=== PATIENT | male | born 1950 | race Caucasian/White ===

== ENCOUNTER 2020-04-09 17:24 | Inpatient (IN) | payer MEDICARE, OTHER ==
--- NOTE | 2020-04-09 18:58 | RAD ---
Portable frontal chest radiograph: 04/09/2020 COMPARISON: 08/30/2016 HISTORY: Covid positive patient with cough and hypoxia FINDINGS: There is extensive new prominent interstitial and alveolar opacity/consolidation within the mid and lower lung zones bilaterally, highly suspicious for extensive bilateral Covid pneumonia. Midline sternotomy wires are noted. There is no pneumothorax or large volume pleural effusion. Pleura l fluid cannot be excluded on the right. IMPRESSION: Prominent airspace disease in the mid and lower lung zones bilaterally, suspicious for ex tensive Covid pneumonia.
[2020-04-09] MEDS ORDERED: Dexamethasone 10 MG/ML VIAL ONE (19:01)
[2020-04-09 19:43] LABS: #Lymphocytes 0.6 thou/uL (1.20-3.40); #Monocytes 0.5 thou/uL (0.11-0.59); #Neutrophils 8.2 thou/uL (1.40-6.50); %Basophils 0.1 % (0.0-1.0); %Eosinophils 0.3 % (0.0-10.0); %Lymphocytes 6.8 % (21.0-51.0); %Monocytes 5.1 % (0.0-10.0); %Neutrophils 87.6 % (42.0-75.0); Hemoglobin 16.6 g/dL (14.0-18.0); Mean Corpuscular HGB CONC 32.9 g/dL (32.0-36.0); Mean Corpuscular Hemoglobin 29.8 pg (27.0-31.0); Mean Corpuscular Volume 90.4 fL (78.0-98.0); Mean Platelet Volume 7.4 fL (7.4-10.4); Platelet Count 212 thou/uL (130-400); RBC Distribution Width 12.3 % (11.5-14.5); Red Blood Cell (RBC) Count 5.56 mill/uL (4.70-6.10); White Blood Cell (WBC) Count 9.4 thou/uL (4.8-10.8)
[2020-04-09 19:48] LABS: ALT (SGPT) 257 U/L (8-55); AST (SGOT) 145 U/L (5-34); Albumin 3.5 g/dL (3.4-4.8); Alkaline Phosphatase 78 U/L (40-110); Anion Gap 19 mmol/L (10-20); BUN (Urea Nitrogen) 29 mg/dL (8.4-25.7); Bilirubin, Total 1.4 mg/dL (0.2-1.2); Calc. Creatinine Clearance 0 mL/min (70-130); Carbon Dioxide 22 mmol/L (23-31); Chloride 96 mmol/L (98-107); Globulin 3.2 g/dL (2.4-3.5); Glucose 246 mg/dL (80-115); Potassium 4.6 mmol/L (3.5-5.1); Protein, Total 6.7 g/dL (5.8-8.1); Sodium 132 mmol/L (136-145)
[2020-04-09] MEDS ORDERED: cloNIDine 0.1 MG TAB PO PRN (21:42)
[2020-04-09] MEDS ORDERED: Promethazine HCl 12.5 MG in Sodium Chloride 0.9% 50 ML IVPB PRN (21:42)
[2020-04-09] MEDS ORDERED: Labetalol HCl 100 MG/20 ML VIAL SLOW IVP PRN (21:42)
[2020-04-09] MEDS ORDERED: HYDROcodone/Acetaminophen 5/325 mg Tablet PO PRN (21:42)
[2020-04-09] MEDS ORDERED: hydrALAZINE 20 MG/ML VIAL SLOW IVP PRN (21:42)
[2020-04-09] MEDS ORDERED: Ondansetron PF 4 MG/2 ML Vial IVP PRN (21:42)
[2020-04-09] MEDS ORDERED: Electrolyte Replacement Protocol 1 EACH FS PRN (21:45)
[2020-04-09] MEDS ORDERED: Dextrose 5% in Water 1,000 ML IV PRN (22:03)
[2020-04-09] MEDS ORDERED: Dextrose 50% Abboject 50 ML SYRINGE SLOW IVP PRN (22:03)
--- NOTE | 2020-04-09 22:03 | PDOC.HHP ---
Hospitalist HPI - History of Present Illness Shortness of breath History of Present Illness: Patient is a 70 year old male with PMH DM, HLD, HTN, CABG, [place] who presents to ED for shortness of breath. Patient diagnosed with COVID mar 28 and was having mild symptoms until this week, when he began to have shortness of breath which was worsening, he went and bought a o2 pulse monitor for home and was in the low 80s and presented to ED. Patient has been on PO steroids and antibiotics from his doctor. In ED, patient stable and satting well on nasal cannula. In ED, labs significant for 132, glucose 246, lactic acid 3.4, LFTs elevated, CXR suspicious for extensive covid pneumonia, patinet admitted for further workup and care. Hospitalist ROS - Review of Systems Constitutional: reports: fever, chills, sweats, weakness, malaise Eyes: denies: pain, vision change, conjunctivae inflammation, eyelid inflammation, redness, other ENT: denies: ear pain, ear discharge, nose pain, nose discharge, nose congestion, mouth pain, mouth swelling, throat pain, throat swelling, other Respiratory: reports: cough, shortness of breath, pleuritic pain. denies: dry, hemoptysis, SOB with excertion, sputum, wheezing, other Cardiovascular: denies: chest pain, palpitations, orthopnea, paroxysmal noc. dyspnea, edema, light headedness, other Gastrointestinal: denies: nausea, vomiting, abdominal pain, diarrhea, constipation, melena, hematochezia, other Genitourinary: denies: dysuria, frequency, incontinence, hematuria, retention, other Musculoskeletal: denies: neck pain, shoulder pain, arm pain, back pain, hand pain, leg pain, foot pain, other Skin: denies: rash, lesions, julianne, bruising, other Neurological: denies: weakness, numbness, incoordination, change in speech, confusion, seizures, other All other systems reviewed; all pertinent +/- noted in HPI/Subj - Medication Medications: clopidogrel WedApr 09, 2020 18:34 VALERIO Lechuga [place] TABLET : Strength - 75 mg : ORAL Patient Dose: 1 tab(s) Oral once a day (at bedtime). pravastatin WedApr 09, 2020 18:34 VALERIO Lechuga [place] TABLET : Strength - 80 mg : ORAL Patient Dose: 1 tab(s) Oral once a day (at bedtime). amLODIPine WedApr 09, 2020 18:34 VALERIO Lechuga [place] TABLET : Strength - 10 mg : ORAL Patient Dose: 1 tab(s) Oral once a day (at bedtime). metFORMIN WedApr 09, 2020 18:34 VALERIO Lechuga [place] TABLET, EXTENDED RELEASE 24 HR : Strength - 500 mg : ORAL Patient Dose: 1 tab(s) Oral once a day (in the evening).WITH EVENING MEAL. meTOPROLOL tartrate oral WedApr 09, 2020 18:34 VALERIO Lechuga [place] TABLET : Strength - 50 mg : ORAL Patient Dose: 1 tab(s) Oral once a day (in the morning). pantoprazole oral WedApr 09, 2020 18:34 VALERIO Lechuga [place] TABLET, DELAYED RELEASE (ENTERIC COATED) : Strength - 40 mg : ORAL Patient Dose: 1 tab(s) Oral 2 times a day. Baby Aspirin WedApr 09, 2020 18:35 VALERIO Lechuga [place] tablet,chewable : Strength - 81 mg : ORAL Patient Dose: once a day (in the morning). Hospitalist History - Past Medical History Other Medical History: DM, HLD, HTN, CABG, [place] - Past Surgical History Other Surgical History: SINUS SURGERY, BILATERAL SHOULDER SURGERY, SKIN CANCER REMOVAL FROM NOSE. CABG x 3. - Family History Family History: reports: no pertinent history - Social History Smoking Status: Former smoker - Exam General Appearance: NAD, awake alert Eye: PERRL, anicteric sclera ENT: normocephalic atraumatic, no oropharyngeal lesions, moist mucosa Neck: supple, symmetric, no JVD, no thyromegaly, no lymphadenopathy, no carotid bruit Heart: RRR, no murmur, no gallops, no rubs, normal peripheral pulses Respiratory: CTAB, no wheezes, no rales, no ronchi, normal chest expansion, no tachypnea, normal percussion Gastrointestinal: soft, non-tender, non-distended, normal bowel sounds, no palpable masses, no hepatomegaly, no splenomegaly, no bruit Extremities: no cyanosis, no clubbing, no edema Skin: normal turgor, no lesions, no rashes Neurological: cranial nerve grossly intact, normal sensation to touch, no weakness, no focal deficits, no new deficit Musculoskeletal: normal tone, normal strength, no muscle wasting Psychiatric: normal affect, normal behavior, A&O x 3 Hospitalist Results - Labs Result Diagrams: 04/09/20 19:14 04/09/20 19:14 Lab results: WBC 9.4 thou/uL (4.8-10.8) 04/09/20 19:14 Hgb 16.6 g/dL (14.0-18.0) 04/09/20 19:14 Hct 50.3 % (42.0-52.0) 04/09/20 19:14 MCV 90.4 fL (78.0-98.0) 04/09/20 19:14 Plt Count 212 thou/uL (130-400) 04/09/20 19:14 Neutrophils % 87.6 % (42.0-75.0) H 04/09/20 19:14 Sodium 132 mmol/L (136-145) L 04/09/20 19:14 Potassium 4.6 mmol/L (3.5-5.1) 04/09/20 19:14 Chloride 96 mmol/L (98-107) L 04/09/20 19:14 Carbon Dioxide 22 mmol/L (23-31) L 04/09/20 19:14 BUN 29 mg/dL (8.4-25.7) H 04/09/20 19:14 Creatinine 0.99 mg/dL (0.7-1.3) 04/09/20 19:14 Glucose 246 mg/dL (80-115) H 04/09/20 19:14 Lactic Acid 3.4 mmol/L (0.5-2.2) H 04/09/20 19:14 Calcium 9.0 mg/dL (7.8-10.44) 04/09/20 19:14 Total Bilirubin 1.4 mg/dL (0.2-1.2) H 04/09/20 19:14 AST 145 U/L (5-34) H 04/09/20 19:14 ALT 257 U/L (8-55) H 04/09/20 19:14 Alkaline Phosphatase 78 U/L (40-110) 04/09/20 19:14 Troponin I Less than 0.010 ng/mL (< 0.028) 04/09/20 19:14 B-Natriuretic Peptide 22.8 pg/mL (0-100) 04/09/20 19:14 Serum Total Protein 6.7 g/dL (5.8-8.1) 04/09/20 19:14 Albumin 3.5 g/dL (3.4-4.8) 04/09/20 19:14 Additional comment: VITAL SIGNS WedApr 09, 2020 17:25 VALERIO Meraz, Jessica BP: 139/73 Pulse: 104 Resp: 24 Temp: 98.9 (Oral) Pain: 0 O2 sat: 83 on (Room Air) Time: 04/09/2020 17:25. - EKG Interpretation EK beats per minute, pr 140, qtc 444, no acute ST changes Hospitalist H&P A/P - Plan Plan: Patient is a 70 year old male with PMH DM, HLD, HTN, CABG, [place] who presents to ED for shortness of breath. # COVID 19 pneumonia # hypoxia # elevated lactic acid - presume due to hypoxia - admit to floor - continue abx, switch to levaquin - IV decadron - out of window for remdesivir # HTN - resume home medications, PRNs in chart # DM - SSI, continue home medications # history of CAD, CABG, [place] - continue home medications # DVT/GI ppx full code
[2020-04-09] MEDS: Guaifenesin DM 100-10/5 ML UDCUP PO PRN (22:25)
[2020-04-09] MEDS ORDERED: cefTRIAXone\\ROCEPHIN 1 GM in Sodium Chloride 0.9% 100 ML IVPB SCH (22:30)
[2020-04-09 22:38] LABS: Lactic Acid 2.3 mmol/L (0.5-2.2)
[2020-04-09 23:45] VITALS: BMI 28.4
[2020-04-10] MEDS: Albuterol 200 PUFF (6.7GM INHALER) INH PRN (05:34)
[2020-04-10] MEDS: HumaLOG 300 UNITS/3 ML VIAL SC PRN ×4 (05:34→19:44)
[2020-04-10 06:55] LABS: ALT (SGPT) 204 U/L (8-55); AST (SGOT) 79 U/L (5-34); Albumin 3.1 g/dL (3.4-4.8); Alkaline Phosphatase 67 U/L (40-110); Bilirubin, Direct 0.5 mg/dL (0.1-0.3); Protein, Total 6.1 g/dL (5.8-8.1)
[2020-04-10 06:56] LABS: #Lymphocytes 0.7 thou/uL (1.20-3.40); #Monocytes 0.2 thou/uL (0.11-0.59); #Neutrophils 7.5 thou/uL (1.40-6.50); %Basophils 0.1 % (0.0-1.0); %Eosinophils 0.1 % (0.0-10.0); %Lymphocytes 7.8 % (21.0-51.0); %Monocytes 2.8 % (0.0-10.0); %Neutrophils 89.2 % (42.0-75.0); Anion Gap 12 mmol/L (10-20); BUN (Urea Nitrogen) 25 mg/dL (8.4-25.7); Calc. Creatinine Clearance 104 mL/min (70-130); Calcium 8.7 mg/dL (7.8-10.44); Carbon Dioxide 24 mmol/L (23-31); Chloride 101 mmol/L (98-107); Glucose 272 mg/dL (80-115); Hemoglobin 12.9 g/dL (14.0-18.0); Mean Corpuscular HGB CONC 33.6 g/dL (32.0-36.0); Mean Corpuscular Hemoglobin 30.9 pg (27.0-31.0); Mean Corpuscular Volume 91.9 fL (78.0-98.0); Platelet Count 238 thou/uL (130-400); Potassium 4.3 mmol/L (3.5-5.1); RBC Distribution Width 12.1 % (11.5-14.5); Red Blood Cell (RBC) Count 4.17 mill/uL (4.70-6.10); Sodium 133 mmol/L (136-145); White Blood Cell (WBC) Count 8.4 thou/uL (4.8-10.8)
[2020-04-10] MEDS: Amiodarone 200 MG TAB PO SCH ×2 (08:11→09:55)
[2020-04-10] MEDS: Famotidine 20 MG TAB PO SCH ×2 (08:11→19:37)
[2020-04-10] MEDS: Alogliptin 25 MG TAB PO SCH ×2 (08:11→09:56)
[2020-04-10] MEDS: Furosemide 40 MG TAB PO SCH ×2 (08:12→09:56)
[2020-04-10] MEDS: Acetaminophen 325 MG TAB PO PRN (08:12)
[2020-04-10] MEDS ORDERED: Magnesium 2 GM/50 ML 2 GM in Premix Bag 1 BAG IVPB SCH (08:30)
[2020-04-10] MEDS ORDERED: Aspirin 325 MG TAB PO SCH (09:00)
--- NOTE | 2020-04-10 12:59 | CON ---
DATE OF CONSULTATION: 04/10/2020 CONSULTING PHYSICIAN: Kandi De Leon MD REASON FOR CONSULTATION: COVID-19 pneumonia. HISTORY OF PRESENT ILLNESS: This patient is a pleasant 70-year-old male, who was a retired [employer] employee from 2004. He became ill with COVID around . At that time, he got tested and was notified results about two days later. He had some fever, but mainly his symptoms been shortness of breath and fatigue. He called Dr. Frias. He was prescribed some Levaquin and I think he had been taking some steroids as an outpatient. He came in the hospital last night because of hypoxemia that he determined by home pulse ox monitoring. It is unclear how long he has been hypoxic. PAST MEDICAL HISTORY: 1. Diabetes. 2. Coronary artery disease. 3. Myocardial infarction. 4. Hypertension. 5. Hyperlipidemia. PAST SURGICAL HISTORY: He has had coronary artery bypass grafting surgery, sinus surgery, bilateral shoulder surgery, and skin cancer removal. FAMILY MEDICAL HISTORY: Unremarkable. SOCIAL HISTORY: Quit smoking around age 33 after a 15 pack-year history. He worked in [employer] here. MEDICATIONS: Prior to admission; 1. Atorvastatin 80 mg nightly. 2. Semaglutide 7 mg daily. 3. Metformin 500 mg b.i.d. 4. Metoprolol 50 mg every morning. 5. Norvasc 5 mg daily. 6. Aspirin 81 mg daily. 7. Zetia 10 mg daily. Current inpatient medications were reviewed, see chart. REVIEW OF SYSTEMS: Dry cough. No fever, chills, nausea, vomiting, hematemesis, melena, hematochezia, hematuria, or dysuria. PHYSICAL EXAMINATION: VITAL SIGNS: O2 saturation 97% 6 L at rest, pulse 82, temperature 97.8, and blood pressure 112/67. GENERAL: The patient awake and alert, in no distress. HEENT: Unremarkable. NECK: No adenopathy or JVD. LUNGS: Scattered crackles both anteriorly and posteriorly. CARDIOVASCULAR: S1 and S2. Regular. ABDOMEN: Soft and nontender. EXTREMITIES: No clubbing, cyanosis, or edema. LABORATORY DATA: Sodium 133, potassium 4.3, chloride 101, CO2 of 24, BUN 25, creatinine 0.8, glucose 272, AST 79, and ALT 204. White blood cell count 8.4, hematocrit 38.3, and platelet count 238. X-ray shows bilateral infiltrates. ASSESSMENT: 1. COVID-19 pneumonia with comorbidities that include coronary artery disease, hypertension, and diabetes mellitus. 2. Acute hypoxic respiratory failure secondary to COVID-19 pneumonia. RECOMMENDATIONS: The patient is stable on his current level of oxygen. I would not recommend BiPAP or intubation or high-flow oxygen at this time, but those could be reserved if he worsens. He is about 14 days into this, so I would not anticipate him necessarily getting worse. His anticoagulation needs to be increased, so I have changed the order in the computer. I agree with the steroids. I would try to manage his diabetes with insulin type agents rather than oral hypoglycemics at this time. I would try to get him up and about the room with physical therapy if at all possible. Job ID: [id number]
--- NOTE | 2020-04-10 14:10 | PDOC.HOSPP ---
- Subjective Encounter Date: 04/10/20 Encounter Time: 08:00 Subjective: sob is better, is comfortable on nasal canula now - Objective Vital Signs & Weight: Vital Signs (12 hours) Temp Pulse Resp BP Pulse Ox 04/10/20 11:19 97.8 F 82 18 112/67 97 04/10/20 10:30 93 L 04/10/20 08:00 92 L 04/10/20 07:19 97.8 F 82 18 135/76 92 L Weight Admit Weight 198 lb 6.656 oz Weight 198 lb 6.656 oz I&O: 04/09/20 04/10/20 04/11/20 06:59 06:59 06:59 Intake Total 350 Balance 350 Result Diagrams: 04/10/20 06:20 04/10/20 06:20 Additional Labs: Accuchecks 04/10/20 04/10/20 11:21 05:09 POC Glucose 237 H 294 H Hospitalist ROS - Medication Medications: Active Medications Generic Name Dose Route Start Last Admin Trade Name Freq PRN Reason Stop Dose Admin Acetaminophen 650 mg 04/09/20 21:42 04/10/20 08:12 Acetaminophen 325 Mg Tab PO 650 mg Q4H PRN Administration Headache/Fever/Mild Pain (1-3) Albuterol Sulfate 1 puff 04/09/20 22:07 04/10/20 05:34 Albuterol 200 Puff (6.7gm Inhaler) INH 1 puff Q4H PRN Administration SOB &/or Wheezing Famotidine 20 mg 04/10/20 09:00 04/10/20 08:11 Famotidine 20 Mg Tab PO 20 mg BID NATALIE Administration Guaifenesin/Dextromethorphan 15 ml 04/09/20 21:42 04/09/20 22:25 Guaifenesin Dm 100-10/5 Ml Udcup PO 15 ml Q4H PRN Administration Cough Insulin Human Lispro 0 units 04/09/20 22:03 04/10/20 11:34 Humalog 300 Units/3 Ml Vial SC 3 unit .MILD SLIDING SCALE PRN Administration Mild Correctional Scale Metoprolol Succinate 50 mg 04/10/20 09:00 04/10/20 08:12 Metoprolol Succinate Xl 50 Mg Tab PO 50 mg QAM NATALIE Administration Pantoprazole Sodium 40 mg 04/10/20 09:00 04/10/20 08:12 Pantoprazole 40 Mg Tab PO 40 mg BID NATALIE Administration - Exam General Appearance: awake alert Eye: PERRL, anicteric sclera ENT: no oropharyngeal lesions, moist mucosa Neck: supple, no JVD Heart: RRR, no murmur Respiratory: no wheezes, rales, rhonchi Gastrointestinal: soft, non-tender, non-distended, normal bowel sounds Extremities: no cyanosis, no edema Neurological: cranial nerve grossly intact, no focal deficits Psychiatric: normal affect, A&O x 3 Hosp A/P (1) Pneumonia due to COVID-19 virus Code(s): U07.1 - COVID-19; J12.82 - PNEUMONIA DUE TO CORONAVIRUS DISEASE 2019 Status: Acute (2) Acute respiratory failure with hypoxia Code(s): J96.01 - ACUTE RESPIRATORY FAILURE WITH HYPOXIA Status: Acute (3) CAD (coronary artery disease) Code(s): I25.10 - ATHSCL HEART DISEASE OF [place] CORONARY ARTERY W/O ANG PCTRS Status: Chronic Qualifiers: Coronary Disease-Associated Artery/Lesion type: bypass graft [place] vs. transplanted heart: [place] heart Associated angina: without angina Qualified Code(s): I25.810 - Atherosclerosis of coronary artery bypass graft(s) without angina pectoris (4) HTN (hypertension) Code(s): I10 - ESSENTIAL (PRIMARY) HYPERTENSION Status: Chronic Qualifiers: Hypertension type: essential hypertension Qualified Code(s): I10 - Es sential (primary) hypertension (5) DM type 2 (diabetes mellitus, type 2) Status: Chronic Qualifiers: Diabetes mellitus nursing home insulin use: without nursing home use (6) Dyslipidemia Code(s): E78.5 - HYPERLIPIDEMIA, UNSPECIFIED Status: Chronic (7) Elevated LFTs Code(s): R79.89 - OTHER SPECIFIED ABNORMAL FINDINGS OF BLOOD CHEMISTRY Status: Acute - Plan is on nasal canula O2, taper as tolerated currently around 5 lts on eliquis dvt prophylaxis, asp, dexamethasone, alb inh, levaquin (may dc if ok with ), protonix, toprol xl, norvasc pt is not on amiodarone and had afib post cabg years ago and none after that, he does not take anticoagulants at home staff to obtain accurate meds from his pharmacy he tested covid 19 + at [facility] on 03/28/2020. d/w and gave full updates to ambulate as tolerated appreciate 's help
[2020-04-10] MEDS: Levofloxacin 750 mg/D5W 500 MG in Premix Bag 1 BAG IVPB SCH (19:31)
[2020-04-10] MEDS: Amlodipine 5 MG TAB PO SCH (19:37)
[2020-04-10] MEDS: Dexamethasone 4 mg/ml Vial SLOW IVP SCH (19:37)
[2020-04-10] MEDS: Atorvastatin Calcium 20 MG TAB PO SCH (19:37)
[2020-04-10] MEDS: Apixaban 2.5 MG TAB PO SCH (19:38)
[2020-04-10] MEDS: Guaifenesin DM 100-10/5 ML UDCUP PO PRN (19:38)
[2020-04-10] MEDS ORDERED: Azithromycin 500 MG in Sodium Chloride 0.9% 250 ML 250 ML IVPB SCH (21:00)
[2020-04-10] MEDS ORDERED: Insulin Glargine 10 UNITS in Pre-Filled Syringe 1 EACH SC SCH (21:00)
[2020-04-10] MEDS ORDERED: Azithromycin 500 MG in Syringe 0 ML IVPB SCH (21:00)
[2020-04-10] MEDS ORDERED: Enoxaparin Sodium 40 MG/0.4 ML SYRINGE SC SCH (21:00)
[2020-04-10] MEDS ORDERED: Apixaban 5 MG TAB PO SCH (21:00)
[2020-04-11] MEDS: HumaLOG 300 UNITS/3 ML VIAL SC PRN ×2 (04:57→11:35)
[2020-04-11] MEDS: Guaifenesin DM 100-10/5 ML UDCUP PO PRN ×3 (04:58→21:35)
[2020-04-11 06:44] LABS: #Lymphocytes 0.6 thou/uL (1.20-3.40); #Monocytes 0.2 thou/uL (0.11-0.59); #Neutrophils 8.8 thou/uL (1.40-6.50); %Eosinophils 0.4 % (0.0-10.0); %Lymphocytes 5.9 % (21.0-51.0); %Neutrophils 91.7 % (42.0-75.0); Hemoglobin 13.2 g/dL (14.0-18.0); Mean Corpuscular HGB CONC 34.1 g/dL (32.0-36.0); Mean Corpuscular Hemoglobin 30.7 pg (27.0-31.0); Mean Corpuscular Volume 90.1 fL (78.0-98.0); Mean Platelet Volume 7.2 fL (7.4-10.4); Platelet Count 278 thou/uL (130-400); Red Blood Cell (RBC) Count 4.31 mill/uL (4.70-6.10); White Blood Cell (WBC) Count 9.6 thou/uL (4.8-10.8)
[2020-04-11 06:59] LABS: ALT (SGPT) 218 U/L (8-55); AST (SGOT) 102 U/L (5-34); Alkaline Phosphatase 70 U/L (40-110); Bilirubin, Direct 0.5 mg/dL (0.1-0.3); Bilirubin, Total 1.1 mg/dL (0.2-1.2); Protein, Total 5.9 g/dL (5.8-8.1)
[2020-04-11 07:02] LABS: Anion Gap 15 mmol/L (10-20); BUN (Urea Nitrogen) 22 mg/dL (8.4-25.7); Calc. Creatinine Clearance 104 mL/min (70-130); Calcium 8.1 mg/dL (7.8-10.44); Carbon Dioxide 21 mmol/L (23-31); Chloride 100 mmol/L (98-107); Glucose 267 mg/dL (80-115); Magnesium 2.1 mg/dL (1.6-2.6); Sodium 132 mmol/L (136-145)
[2020-04-11] MEDS: Aspirin 81 mg Enteric Coated Tablet PO SCH (08:34)
[2020-04-11] MEDS: Apixaban 2.5 MG TAB PO SCH ×2 (08:34→20:35)
[2020-04-11] MEDS: Famotidine 20 MG TAB PO SCH (08:34)
[2020-04-11] MEDS: Ezetimibe 10 MG TAB PO SCH (08:35)
[2020-04-11] MEDS: Insulin Glargine 15 UNITS in Pre-Filled Syringe 1 EACH SC SCH ×2 (08:36→21:36)
[2020-04-11] MEDS: Albuterol 200 PUFF (6.7GM INHALER) INH PRN ×2 (08:58→20:37)
--- NOTE | 2020-04-11 09:30 | PRG ---
DATE OF SERVICE: 04/11/2020 SUBJECTIVE: He is actually doing better, has no acute complaints. OBJECTIVE: VITAL SIGNS: Temperature 98.3, pulse 72, respirations 18, O2 saturation 100% on 6 L, blood pressure . HEENT: Unremarkable. NECK: No JVD. CHEST: Fairly clear. CARDIAC: S1 and S2. Regular. ABDOMEN: Soft. EXTREMITIES: No edema. LABORATORY DATA: White blood cell count 9.6, hematocrit 38.8, and platelet count 278. Sodium 132, potassium 4.0, BUN 22, creatinine 0.8, glucose 267. ASSESSMENT: Coronavirus disease 2019 pneumonia. RECOMMENDATION: Continue with anticoagulation, steroids and wean oxygen as tolerated. I do not expect that he is going to do anything, but get better at this point. Please recall if the patient gets worse. Job ID: [id number]
--- NOTE | 2020-04-11 14:43 | PDOC.HOSPP ---
- Subjective Encounter Date: 04/11/20 Encounter Time: 08:00 Subjective: no new complaints, has dry coughing spells is comfortable on humidified nasal canula O2 is mobilizing in room - Objective Vital Signs & Weight: Vital Signs (12 hours) Temp Pulse Resp BP Pulse Ox 04/11/20 11:00 98 F 82 17 127/77 98 04/11/20 09:00 112/68 93 L 04/11/20 08:00 93 L 04/11/20 07:00 98.3 F 72 18 115/73 100 04/11/20 04:55 97.6 F 86 18 134/86 90 L Weight Admit Weight 198 lb 6.656 oz Weight 198 lb 6.656 oz I&O: 04/10/20 04/11/20 04/12/20 06:59 06:59 06:59 Intake Total 350 560 Output Total 800 Balance 350 -240 Result Diagrams: 04/11/20 05:54 04/11/20 05:54 Additional Labs: Accuchecks 04/11/20 04/11/20 04/10/20 11:11 04:22 19:24 POC Glucose 222 H 270 H 211 H 04/10/20 15:49 POC Glucose 268 H Hospitalist ROS - Medication Medications: Active Medications Generic Name Dose Route Start Last Admin Trade Name Freq PRN Reason Stop Dose Admin Acetaminophen 650 mg 04/09/20 21:42 04/10/20 08:12 Acetaminophen 325 Mg Tab PO 650 mg Q4H PRN Administration Headache/Fever/Mild Pain (1-3) Albuterol Sulfate 1 puff 04/09/20 22:07 04/11/20 08:58 Albuterol 200 Puff (6.7gm Inhaler) INH 1 puff Q4H PRN Administration SOB &/or Wheezing Amlodipine Besylate 5 mg 04/10/20 21:00 04/10/20 19:37 Amlodipine 5 Mg Tab PO 5 mg HS NATALIE Administration Apixaban 2.5 mg 04/10/20 21:00 04/11/20 08:34 Apixaban 2.5 Mg Tab PO 2.5 mg BID NATALIE Administration Aspirin 81 mg 04/11/20 09:00 04/11/20 08:34 Aspirin 81 Mg Enteric Coated Tablet PO 81 mg DAILY NATALIE Administration Atorvastatin Calcium 20 mg 04/10/20 21:00 04/10/20 19:37 Atorvastatin Calcium 20 Mg Tab PO 20 mg HS NATALIE Administration Dexamethasone 6 mg 04/10/20 21:00 04/10/20 19:37 Dexamethasone 4 Mg/Ml Vial SLOW IVP 6 mg Q24H NATALIE Administration Ezetimibe 10 mg 04/11/20 09:00 04/11/20 08:35 Ezetimibe 10 Mg Tab PO 10 mg DAILY NATALIE Administration Famotidine 20 mg 04/10/20 09:00 04/11/20 08:34 Famotidine 20 Mg Tab PO 20 mg BID NATALIE Administration Guaifenesin/Dextromethorphan 15 ml 04/09/20 21:42 04/11/20 14:28 Guaifenesin Dm 100-10/5 Ml Udcup PO 15 ml Q4H PRN Administration Cough Levofloxacin 500 mg/ Device 100 mls @ 100 mls/hr 04/10/20 20:00 04/10/20 19:31 IVPB 100 mls 2000 NATALIE Administration Insulin Glargine 15 units/ 0.15 mls @ 0 mls/hr 04/11/20 09:00 04/11/20 08:36 Miscellaneous Medication SC 0.15 mls BID NATALIE Administration Insulin Human Lispro 0 units 04/09/20 22:03 04/11/20 11:35 Humalog 300 Units/3 Ml Vial SC 3 unit .MILD SLIDING SCALE PRN Administration Mild Correctional Scale Metoprolol Succinate 50 mg 04/10/20 09:00 04/11/20 11:35 Metoprolol Succinate Xl 50 Mg Tab PO 50 mg QAM NATALIE Administration Pantoprazole Sodium 40 mg 04/10/20 09:00 04/11/20 08:35 Pantoprazole 40 Mg Tab PO 40 mg BID NATALIE Administration - Exam General Appearance: awake alert Eye: PERRL, anicteric sclera ENT: no oropharyngeal lesions, moist mucosa Neck: supple, no JVD Heart: RRR, no murmur Respiratory: no wheezes, rales, rhonchi Gastrointestinal: soft, non-tender, non-distended, normal bowel sounds Extremities: no cyanosis, no edema Neurological: cranial nerve grossly intact, no focal deficits Psychiatric: normal affect, A&O x 3 Hosp A/P (1) Pneumonia due to COVID-19 virus Code(s): U07.1 - COVID-19; J12.82 - PNEUMONIA DUE TO CORONAVIRUS DISEASE 2018 Status: Acute (2) Acute respiratory failure with hypoxia Code(s): J96.01 - ACUTE RESPIRATORY FAILURE WITH HYPOXIA Status: Acute (3) CAD (coronary artery disease) Code(s): I25.10 - ATHSCL HEART DISEASE OF [place] CORONARY ARTERY W/O ANG PCTRS Status: Chronic Qualifiers: Coronary Disease-Associated Artery/Lesion type: bypass graft [place] vs. transplanted heart: [place] heart Associated angina: without angina Qualified Code(s): I25.810 - Atherosclerosis of coronary artery bypass graft(s) without angina pectoris (4) HTN (hypertension) Code(s): I10 - ESSENTIAL (PRIMARY) HYPERTENSION Status: Chronic Qualifiers: Hypertension type: essential hypertension Qualified Code(s): I10 - Essential (primary) hypertension (5) DM type 2 (diabetes mellitus, type 2) Status: Chronic Qualifiers: Diabetes mellitus correction insulin use: without rat exterminator use (6) Dyslipidemia Code(s): E78.5 - HYPERLIPIDEMIA, UNSPECIFIED Status: Chronic (7) Elevated LFTs Code(s): R79.89 - OTHER SPECIFIED ABNORMAL FINDINGS OF BLOOD CHEMISTRY Status: Acute - Plan is on nasal canula O2, taper as tolerated currently around 6 lts on eliquis dvt prophylaxis, asp, dexamethasone, alb inh, levaquin (may dc if ok with ), protonix, toprol xl, norvasc pt is not on amiodarone and had afib post cabg years ago and none after that, he does not take anticoagulants at home he tested covid 19 + at [facility] on 03/28/2020. d/w and gave full updates 04/10, 04/11. to ambulate as tolerated appreciate 's help
[2020-04-11] MEDS: Levofloxacin 750 mg/D5W 500 MG in Premix Bag 1 BAG IVPB SCH (20:34)
[2020-04-11] MEDS: Amlodipine 5 MG TAB PO SCH (20:35)
[2020-04-11] MEDS: Atorvastatin Calcium 20 MG TAB PO SCH (20:35)
[2020-04-11] MEDS: Acetaminophen 325 MG TAB PO PRN (20:36)
[2020-04-11] MEDS: Dexamethasone 4 mg/ml Vial SLOW IVP SCH (20:50)
[2020-04-12] MEDS: HumaLOG 300 UNITS/3 ML VIAL SC PRN (05:34)
[2020-04-12 06:12] LABS: #Eosinphils 0.2 thou/uL (0.0-0.7); #Lymphocytes 0.7 thou/uL (1.20-3.40); #Monocytes 0.2 thou/uL (0.11-0.59); #Neutrophils 7.1 thou/uL (1.40-6.50); %Basophils 0.2 % (0.0-1.0); %Lymphocytes 8.6 % (21.0-51.0); %Neutrophils 87.2 % (42.0-75.0); Hemoglobin 13.6 g/dL (14.0-18.0); Mean Corpuscular HGB CONC 33.7 g/dL (32.0-36.0); Mean Corpuscular Hemoglobin 30.4 pg (27.0-31.0); Mean Corpuscular Volume 90.1 fL (78.0-98.0); Platelet Count 268 thou/uL (130-400); RBC Distribution Width 12.2 % (11.5-14.5); Red Blood Cell (RBC) Count 4.47 mill/uL (4.70-6.10); White Blood Cell (WBC) Count 8.1 thou/uL (4.8-10.8)
[2020-04-12 06:40] LABS: Anion Gap 14 mmol/L (10-20); BUN (Urea Nitrogen) 22 mg/dL (8.4-25.7); Calc. Creatinine Clearance 102 mL/min (70-130); Calcium 8.2 mg/dL (7.8-10.44); Carbon Dioxide 22 mmol/L (23-31); Chloride 101 mmol/L (98-107); Glucose 224 mg/dL (80-115); Magnesium 2.2 mg/dL (1.6-2.6); Potassium 4.4 mmol/L (3.5-5.1); Sodium 133 mmol/L (136-145)
[2020-04-12] MEDS: Apixaban 2.5 MG TAB PO SCH ×2 (08:23→20:48)
[2020-04-12] MEDS: Insulin Glargine 15 UNITS in Pre-Filled Syringe 1 EACH SC SCH ×2 (08:24→20:51)
[2020-04-12] MEDS: Aspirin 81 mg Enteric Coated Tablet PO SCH (08:24)
[2020-04-12] MEDS: Ezetimibe 10 MG TAB PO SCH (08:24)
--- NOTE | 2020-04-12 14:37 | PDOC.HOSPP ---
- Subjective Encounter Date: 04/12/20 Encounter Time: 08:00 Subjective: feels better, is on nasal canula is ambulating in room, has exertional sob - Objective Vital Signs & Weight: Vital Signs (12 hours) Temp Pulse Resp BP Pulse Ox 04/12/20 08:00 98.4 F 79 20 116/74 96 Weight Admit Weight 198 lb 6.656 oz Weight 198 lb 6.656 oz I&O: 04/11/20 04/12/20 04/13/20 06:59 06:59 06:59 Intake Total 560 Output Total 800 Balance -240 Result Diagrams: 04/12/20 05:49 04/12/20 05:49 Additional Labs: Accuchecks 04/12/20 04/12/20 04/11/20 11:52 04:36 19:24 POC Glucose 175 H 235 H 182 H 04/11/20 16:24 POC Glucose 118 H Hospitalist ROS - Medication Medications: Active Medications Generic Name Dose Route Start Last Admin Trade Name Freq PRN Reason Stop Dose Admin Acetaminophen 650 mg 04/09/20 21:42 04/11/20 20:36 Acetaminophen 325 Mg Tab PO 650 mg Q4H PRN Administration Headache/Fever/Mild Pain (1-3) Albuterol Sulfate 1 puff 04/09/20 22:07 04/11/20 20:37 Albuterol 200 Puff (6.7gm Inhaler) INH 1 puff Q4H PRN Administration SOB &/or Wheezing Amlodipine Besylate 5 mg 04/10/20 21:00 04/11/20 20:35 Amlodipine 5 Mg Tab PO 5 mg HS NATALIE Administration Apixaban 2.5 mg 04/10/20 21:00 04/12/20 08:23 Apixaban 2.5 Mg Tab PO 2.5 mg BID NATALIE Administration Aspirin 81 mg 04/11/20 09:00 04/12/20 08:24 Aspirin 81 Mg Enteric Coated Tablet PO 81 mg DAILY NATALIE Administration Atorvastatin Calcium 20 mg 04/10/20 21:00 04/11/20 20:35 Atorvastatin Calcium 20 Mg Tab PO 20 mg HS NATALIE Administration Dexamethasone 6 mg 04/10/20 21:00 04/11/20 20:50 Dexamethasone 4 Mg/Ml Vial SLOW IVP 6 mg Q24H NATALIE Administration Ezetimibe 10 mg 04/11/20 09:00 04/12/20 08:24 Ezetimibe 10 Mg Tab PO 10 mg DAILY NATALIE Administration Guaifenesin/Dextromethorphan 15 ml 04/09/20 21:42 04/11/20 21:35 Guaifenesin Dm 100-10/5 Ml Udcup PO 15 ml Q4H PRN Administration Cough Insulin Glargine 15 units/ 0.15 mls @ 0 mls/hr 04/11/20 09:00 04/12/20 08:24 Miscellaneous Medication SC 0.15 mls BID NATALIE Administration Insulin Human Lispro 0 units 04/09/20 22:03 04/12/20 05:34 Humalog 300 Units/3 Ml Vial SC 3 unit .MILD SLIDING SCALE PRN Administration Mild Correctional Scale Metoprolol Succinate 50 mg 04/10/20 09:00 04/11/20 11:35 Metoprolol Succinate Xl 50 Mg Tab PO 50 mg QAM NATALIE Administration Pantoprazole Sodium 40 mg 04/10/20 09:00 04/12/20 08:24 Pantoprazole 40 Mg Tab PO 40 mg BID NATALIE Administration - Exam General Appearance: awake alert Eye: PERRL, anicteric sclera ENT: no oropharyngeal lesions, moist mucosa Neck: supple, no JVD Heart: RRR, no murmur Respiratory: no wheezes, rales, rhonchi Gastrointestinal: soft, non-tender, non-distended, normal bowel sounds Extremities: no cyanosis, no edema Neurological: cranial nerve grossly intact, no focal deficits Psychiatric: normal affect, A&O x 3 Hosp A/P (1) Pneumonia due to COVID-19 virus Code(s): U07.1 - COVID-19; J12.82 - PNEUMONIA DUE TO CORONAVIRUS DISEASE 2019 Status: Acute (2) Acute respiratory failure with hypoxia Code(s): J96.01 - ACUTE RESPIRATORY FAILURE WITH HYPOXIA Status: Acute (3) CAD (coronary artery disease) Code(s): I25.10 - ATHSCL HEART DISEASE OF [place] CORONARY ARTERY W/O ANG PCTRS Status: Chronic Qualifiers: Coronary Disease-Associated Artery/Lesion type: bypass graft [place] vs. transplanted heart: [place] heart Associated angina: without angina Qualified Code(s): I25.810 - Atherosclerosis of coronary artery bypass graft(s) without angina pectoris (4) HTN (hypertension) Code(s): I10 - ESSENTIAL (PRIMARY) HYPERTENSION Status: Chronic Qualifiers: Hypertension type: essential hypertension Qualified Code(s): I10 - [place] l (primary) hypertension (5) DM type 2 (diabetes mellitus, type 2) Status: Chronic Qualifiers: Diabetes mellitus manager terminal insulin use: without senior care use (6) Dyslipidemia Code(s): E78.5 - HYPERLIPIDEMIA, UNSPECIFIED Status: Chronic (7) Elevated LFTs Code(s): R79.89 - OTHER SPECIFIED ABNORMAL FINDINGS OF BLOOD CHEMISTRY Status: Acute - Plan is on nasal canula O2, taper as tolerated currently around 4 lts on eliquis dvt prophylaxis, asp, dexamethasone, alb inh, levaquin (may dc if ok with ), protonix, toprol xl, norvasc pt is not on amiodarone and had afib post cabg years ago and none after that, he does not take anticoagulants at home he tested covid 19 + at [facility] on 03/28/2020. d/w and gave full updates 04/10, 04/11, 04/12. to ambulate as tolerated dc plan when he is on 2-3 lts by [place], likely this weekend?
[2020-04-12] MEDS: Atorvastatin Calcium 20 MG TAB PO SCH (20:48)
[2020-04-12] MEDS: Amlodipine 5 MG TAB PO SCH (20:48)
[2020-04-12] MEDS: Dexamethasone 4 mg/ml Vial SLOW IVP SCH (20:49)
[2020-04-12] MEDS: Albuterol 200 PUFF (6.7GM INHALER) INH PRN (20:50)
[2020-04-12] MEDS: Acetaminophen 325 MG TAB PO PRN (20:50)
[2020-04-13] MEDS: HumaLOG 300 UNITS/3 ML VIAL SC PRN ×3 (05:50→17:46)
[2020-04-13] MEDS: Aspirin 81 mg Enteric Coated Tablet PO SCH (08:35)
[2020-04-13] MEDS: Apixaban 2.5 MG TAB PO SCH ×2 (08:35→19:55)
[2020-04-13] MEDS: Insulin Glargine 15 UNITS in Pre-Filled Syringe 1 EACH SC SCH ×2 (08:35→19:56)
[2020-04-13] MEDS: Ezetimibe 10 MG TAB PO SCH (08:35)
--- NOTE | 2020-04-13 11:15 | EKG ---
Test Reason : SOB Blood Pressure : / mmHG Vent. Rate : 098 BPM Atrial Rate : 098 BPM P-R Int : 140 ms QRS Dur : 092 ms QT Int : 348 ms P-R-T Axes : 041 -62 069 degrees QTc Int : 444 ms Normal sinus rhythm Possible Left atrial enlargement Left axis deviation Incomplete right bundle branch block Abnormal ECG Confirmed by MANOJ KOCH ([id number]), photo editor KENYATTA LEE ([id number]) on 04/13/2020 11:15:25 AM Referred By: Confirmed By:MANOJ KOCH
--- NOTE | 2020-04-13 14:24 | PDOC.HOSPP ---
- Subjective Encounter Date: 04/13/20 Encounter Time: 14:23 Subjective: Mr. Carmen was seen today in follow-up of COVID pneumonia. He notes feeling a bit more winded, but he attributes this to the weaning of his oxygen. He has an occasional cough, denies chest pain, ad denies any diarrhea, - Objective Vital Signs & Weight: Vital Signs (12 hours) Temp Pulse Resp BP Pulse Ox 04/13/20 12:18 97.7 F 93 20 120/72 97 04/13/20 07:32 96 04/13/20 07:30 97.7 F 79 20 105/66 96 Weight Admit Weight 198 lb 6.656 oz Weight 198 lb 6.656 oz I&O: 04/12/20 04/13/20 04/14/20 06:59 06:59 06:59 Intake Total 400 Output Total 850 Balance -450 Result Diagrams: 04/12/20 05:49 04/12/20 05:49 Additional Labs: Accuchecks 04/13/20 04/13/20 04/12/20 11:40 05:45 19:42 POC Glucose 171 H 206 H 153 H 04/12/20 15:53 POC Glucose 184 H Hospitalist ROS - Medication Medications: Active Medications Generic Name Dose Route Start Last Admin Trade Name Freq PRN Reason Stop Dose Admin Acetaminophen 650 mg 04/09/20 21:42 04/12/20 20:50 Acetaminophen 325 Mg Tab PO 650 mg Q4H PRN Administration Headache/Fever/Mild Pain (1-3) Albuterol Sulfate 1 puff 04/09/20 22:07 04/12/20 20:50 Albuterol 200 Puff (6.7gm Inhaler) INH 1 puff Q4H PRN Administration SOB &/or Wheezing Amlodipine Besylate 5 mg 04/10/20 21:00 04/12/20 20:48 Amlodipine 5 Mg Tab PO 5 mg HS NATALIE Administration Apixaban 2.5 mg 04/10/20 21:00 04/13/20 08:35 Apixaban 2.5 Mg Tab PO 2.5 mg BID NATALIE Administration Aspirin 81 mg 04/11/20 09:00 04/13/20 08:35 Aspirin 81 Mg Enteric Coated Tablet PO 81 mg DAILY NATALIE Administration Atorvastatin Calcium 20 mg 04/10/20 21:00 04/12/20 20:48 Atorvastatin Calcium 20 Mg Tab PO 20 mg HS NATALIE Administration Dexamethasone 6 mg 04/10/20 21:00 04/12/20 20:49 Dexamethasone 4 Mg/Ml Vial SLOW IVP 6 mg Q24H NATALIE Administration Ezetimibe 10 mg 04/11/20 09:00 04/13/20 08:35 Ezetimibe 10 Mg Tab PO 10 mg DAILY NATALIE Administration Guaifenesin/Dextromethorphan 15 ml 04/09/20 21:42 04/11/20 21:35 Guaifenesin Dm 100-10/5 Ml Udcup PO 15 ml Q4H PRN Administration Cough Insulin Glargine 15 units/ 0.15 mls @ 0 mls/hr 04/11/20 09:00 04/13/20 08:35 Miscellaneous Medication SC 0.15 mls BID NATALIE Administration Insulin Human Lispro 0 units 04/09/20 22:03 04/13/20 12:51 Humalog 300 Units/3 Ml Vial SC 2 unit .MILD SLIDING SCALE PRN Administration Mild Correctional Scale Levofloxacin 500 mg 04/12/20 20:00 04/12/20 20:48 Levofloxacin 500 Mg Tab PO 500 mg 2000 NATALIE Administration Metoprolol Succinate 50 mg 04/10/20 09:00 04/13/20 08:35 Metoprolol Succinate Xl 50 Mg Tab PO 50 mg QAM NATALIE Administration Pantoprazole Sodium 40 mg 04/10/20 09:00 04/13/20 08:35 Pantoprazole 40 Mg Tab PO 40 mg BID NATALIE Administration - Exam General Appearance: NAD Eye: PERRL, anicteric sclera Heart: RRR, no murmur, no gallops, no rubs, normal peripheral pulses Respiratory: rales (at both bases, right > left no wheezing or rhonchi) Gastrointestinal: soft, non-tender, non-distended, normal bowel sounds, no palpable masses, no hepatomegaly Extremities: no cyanosis, no edema (+ palpable d.p. pulses bilaterally, no lesions) Hosp A/P (1) Acute respiratory failure with hypoxia Code(s): J96.01 - ACUTE RESPIRATORY FAILURE WITH HYPOXIA Status: Acute (2) Pneumonia due to COVID-19 virus Code(s): U07.1 - COVID-19; J12.82 - PNEUMONIA DUE TO CORONAVIRUS DISEASE 2019 Status: Acute (3) CAD (coronary artery disease) Code(s): I25.10 - ATHSCL HEART DISEASE OF [place] CORONARY ARTERY W/O ANG PCTRS Status: Chronic Qualifiers: Coronary Disease-Associated Artery/Lesion type: bypass graft [place] vs. transplanted heart: [place] heart Associated angina: without angina Qualified Code(s): I25.810 - Atherosclerosis of coronary artery bypass graft(s) without angina pectoris (4) DM type 2 (diabetes mellitus, type 2) Status: Chronic Qualifiers: Diabetes mellitus termite treater helper insulin use: without prison use (5) HTN (hypertension) Code(s): I10 - ESSENTIAL (PRIMARY) HYPERTENSION Status: Chronic Qualifiers: Hypertension type: essential hypertension Qualified Code(s): I10 - Essential (primary) hypertension - Plan * Acute respiratory failure due to COVID pneumonia- continue supportive care, IV Decdron, ad incentive spirometry * DVT prophylaxis is in the form of Eliquis- may consider changing to Lovenox in the AM- will check his D- Dimer * HTN- blood pressure is stable * DM- blood glucose is stable
[2020-04-13] MEDS: Atorvastatin Calcium 20 MG TAB PO SCH (19:55)
[2020-04-13] MEDS: Amlodipine 5 MG TAB PO SCH (19:55)
[2020-04-13] MEDS: Dexamethasone 4 mg/ml Vial SLOW IVP SCH (19:55)
[2020-04-14] MEDS: HumaLOG 300 UNITS/3 ML VIAL SC PRN ×2 (05:27→12:07)
[2020-04-14 07:06] LABS: Anion Gap 15 mmol/L (10-20); BUN (Urea Nitrogen) 26 mg/dL (8.4-25.7); CRP (Inflammatory) 8.74 mg/dL (= or < 0.5); Calc. Creatinine Clearance 105 mL/min (70-130); Carbon Dioxide 19 mmol/L (23-31); Chloride 102 mmol/L (98-107); Glucose 198 mg/dL (80-115); Potassium 4.9 mmol/L (3.5-5.1); Sodium 131 mmol/L (136-145)
[2020-04-14] MEDS: Aspirin 81 mg Enteric Coated Tablet PO SCH (09:00)
[2020-04-14] MEDS: Apixaban 2.5 MG TAB PO SCH (09:00)
[2020-04-14] MEDS: Ezetimibe 10 MG TAB PO SCH (09:00)
[2020-04-14] MEDS: Insulin Glargine 15 UNITS in Pre-Filled Syringe 1 EACH SC SCH ×2 (09:01→19:58)
--- NOTE | 2020-04-14 17:47 | PDOC.HOSPP ---
- Subjective Encounter Date: 04/14/20 Encounter Time: 17:46 Subjective: Mr. Carmen was seen today in follow-up of COVD pneumonia. He says he is beginning to feel much better. He says he is breathing better, and he has been able to tolerate a lower oxygen frate. He is now down to 3 liters. - Objective Vital Signs & Weight: Vital Signs (12 hours) Temp Pulse Resp BP Pulse Ox 04/14/20 14:20 93 L 04/14/20 12:00 95 04/14/20 09:07 99 04/14/20 08:12 97.5 F L 83 20 136/84 99 Weight Admit Weight 198 lb 6.656 oz Weight 198 lb 6.656 oz I&O: 04/13/20 04/14/20 04/15/20 06:59 06:59 06:59 Intake Total 400 800 800 Output Total 850 600 Balance -450 200 800 Result Diagrams: 04/12/20 05:49 04/14/20 05:47 Additional Labs: Accuchecks 04/14/20 04/14/20 04/14/20 16:41 11:14 05:20 POC Glucose 145 H 183 H 201 H 04/13/20 20:02 POC Glucose 226 H Hospitalist ROS - Medication Medications: Active Medications Generic Name Dose Route Start Last Admin Trade Name Freq PRN Reason Stop Dose Admin Acetaminophen 650 mg 04/09/20 21:42 04/12/20 20:50 Acetaminophen 325 Mg Tab PO 650 mg Q4H PRN Administration Headache/Fever/Mild Pain (1-3) Albuterol Sulfate 1 puff 04/09/20 22:07 04/12/20 20:50 Albuterol 200 Puff (6.7gm Inhaler) INH 1 puff Q4H PRN Administration SOB &/or Wheezing Amlodipine Besylate 5 mg 04/10/20 21:00 04/13/20 19:55 Amlodipine 5 Mg Tab PO 5 mg HS NATALIE Administration Aspirin 81 mg 04/11/20 09:00 04/14/20 09:00 Aspirin 81 Mg Enteric Coated Tablet PO 81 mg DAILY NATALIE Administration Atorvastatin Calcium 20 mg 04/10/20 21:00 04/13/20 19:55 Atorvastatin Calcium 20 Mg Tab PO 20 mg HS NATALIE Administration Dexamethasone 6 mg 04/10/20 21:00 04/13/20 19:55 Dexamethasone 4 Mg/Ml Vial SLOW IVP 6 mg Q24H NATALIE Administration Ezetimibe 10 mg 04/11/20 09:00 04/14/20 09:00 Ezetimibe 10 Mg Tab PO 10 mg DAILY NATALIE Administration Guaifenesin/Dextromethorphan 15 ml 04/09/20 21:42 04/11/20 21:35 Guaifenesin Dm 100-10/5 Ml Udcup PO 15 ml Q4H PRN Administration Cough Insulin Glargine 15 units/ 0.15 mls @ 0 mls/hr 04/11/20 09:00 04/14/20 09:01 Miscellaneous Medication SC 0.15 mls BID NATALIE Administration Insulin Human Lispro 0 units 04/09/20 22:03 04/14/20 12:07 Humalog 300 Units/3 Ml Vial SC 2 unit .MILD SLIDING SCALE PRN Administration Mild Correctional Scale Levofloxacin 500 mg 04/12/20 20:00 04/13/20 19:55 Levofloxacin 500 Mg Tab PO 500 mg 2000 NATALIE Administration Metoprolol Succinate 50 mg 04/10/20 09:00 04/14/20 09:00 Metoprolol Succinate Xl 50 Mg Tab PO 50 mg QAM NATALIE Administration Pantoprazole Sodium 40 mg 04/10/20 09:00 04/14/20 09:00 Pantoprazole 40 Mg Tab PO 40 mg BID NATALIE Administration - Exam Eye: PERRL, anicteric sclera Neck: no JVD Heart: RRR, no murmur, no gallops, no rubs, normal peripheral pulses Respiratory: no wheezes, no ronchi, rales (at both bases) Gastrointestinal: soft, non-tender, non-distended, normal bowel sounds, no palpable masses, no hepatomegaly, no splenomegaly Extremities: no cyanosis (palpable d.p. pulses, no lesions), no edema Hosp A/P (1) Acute respiratory failure with hypoxia Code(s): J96.01 - ACUTE RESPIRATORY FAILURE WITH HYPOXIA Status: Acute (2) Pneumonia due to COVID-19 virus Code(s): U07.1 - COVID-19; J12.82 - PNEUMONIA DUE TO CORONAVIRUS DISEASE 2019 Status: Acute (3) CAD (coronary artery disease) Code(s): I25.10 - ATHSCL HEART DISEASE OF [place] CORONARY ARTERY W/O ANG PCTRS Status: Chronic Qualifiers: Coronary Disease-Associated Artery/Lesion type: bypass graft [place] vs. transplanted heart: [place] heart Associated angina: without angina Qualified Code(s): I25.810 - Atherosclerosis of coronary artery bypass graft(s) without angina pectoris (4) DM type 2 (diabetes mellitus, type 2) Status: Chronic Qualifiers: Diabetes mellitus terminal manager insulin use: without penitentiary use (5) HTN (hypertension) Code(s): I10 - ESSENTIAL (PRIMARY) HYPERTENSION Status: Chronic Qualifiers: Hypertension type: essential hypertension Qualified Code(s): I10 - Essential (primary) hypertension - Plan * Acute respiratory failure due to COVID pneumonia- continue supportive care, IV Decdron,and incentive spirometry * DVT prophylaxis - will continue Lovenox * He is now down to 3 liters- will anticipate home once home oxygen can be arranged * HTN- blood pressure is stable * DM- blood glucose is stable
[2020-04-14] MEDS: Guaifenesin DM 100-10/5 ML UDCUP PO PRN (19:58)
[2020-04-14] MEDS: Atorvastatin Calcium 20 MG TAB PO SCH (19:59)
[2020-04-14] MEDS: Dexamethasone 4 mg/ml Vial SLOW IVP SCH (19:59)
[2020-04-14] MEDS: Amlodipine 5 MG TAB PO SCH (19:59)
[2020-04-15] MEDS: Guaifenesin DM 100-10/5 ML UDCUP PO PRN ×2 (04:38→09:41)
[2020-04-15] MEDS: HumaLOG 300 UNITS/3 ML VIAL SC PRN (04:41)
[2020-04-15] MEDS: Aspirin 81 mg Enteric Coated Tablet PO SCH (08:35)
[2020-04-15] MEDS: Ezetimibe 10 MG TAB PO SCH (08:35)
[2020-04-15] MEDS ORDERED: Enoxaparin Sodium 40 MG/0.4 ML SYRINGE SC SCH (09:00)
[2020-04-15] MEDS: Insulin Glargine 15 UNITS in Pre-Filled Syringe 1 EACH SC SCH (09:39)
--- NOTE | 2020-04-15 16:48 | PDOC.HOSPP ---
- Subjective Encounter Date: 04/15/20 Encounter Time: 16:46 Subjective: Mr. Carmen was seen today in follow-up of COVID pneumonia. He does not have any complaints. He is feeling better. - Objective Vital Signs & Weight: Vital Signs (12 hours) Temp Pulse Resp BP BP BP BP 04/15/20 15:41 130/82 126/80 101/68 04/15/20 11:37 97.5 F L 80 16 113/74 128/65 132/78 04/15/20 08:51 04/15/20 07:24 98.0 F 72 16 131/79 Pulse Ox 04/15/20 15:41 04/15/20 11:37 90 L 04/15/20 08:51 94 L 04/15/20 07:24 94 L Weight Admit Weight 198 lb 6.656 oz Weight 198 lb 6.656 oz I&O: 04/14/20 04/15/20 04/16/20 06:59 06:59 06:59 Intake Total 800 800 Output Total 600 Balance 200 800 Result Diagrams: 04/12/20 05:49 04/14/20 05:47 Additional Labs: Accuchecks 04/15/20 04/15/20 04/15/20 15:51 11:38 03:33 POC Glucose 130 H 146 H 262 H 04/14/20 04/14/20 19:28 16:41 POC Glucose 193 H 145 H Hospitalist ROS - Medication Medications: Active Medications Generic Name Dose Route Start Last Admin Trade Name Freq PRN Reason Stop Dose Admin Acetaminophen 650 mg 04/09/20 21:42 04/12/20 20:50 Acetaminophen 325 Mg Tab PO 650 mg Q4H PRN Administration Headache/Fever/Mild Pain (1-3) Albuterol Sulfate 1 puff 04/09/20 22:07 04/12/20 20:50 Albuterol 200 Puff (6.7gm Inhaler) INH 1 puff Q4H PRN Administration SOB &/or Wheezing Amlodipine Besylate 5 mg 04/10/20 21:00 04/14/20 19:59 Amlodipine 5 Mg Tab PO 5 mg HS NATALIE Administration Aspirin 81 mg 04/11/20 09:00 04/15/20 08:35 Aspirin 81 Mg Enteric Coated Tablet PO 81 mg DAILY NATALIE Administration Atorvastatin Calcium 20 mg 04/10/20 21:00 04/14/20 19:59 Atorvastatin Calcium 20 Mg Tab PO 20 mg HS NATALIE Administration Dexamethasone 6 mg 04/10/20 21:00 04/14/20 19:59 Dexamethasone 4 Mg/Ml Vial SLOW IVP 6 mg Q24H NATALIE Administration Ezetimibe 10 mg 04/11/20 09:00 04/15/20 08:35 Ezetimibe 10 Mg Tab PO 10 mg DAILY NATALIE Administration Enoxaparin Sodium 40 mg 04/15/20 09:00 04/15/20 08:35 Enoxaparin Sodium 40 Mg/0.4 Ml Syringe SC 40 mg 0900 NATALIE Administration Guaifenesin/Dextromethorphan 15 ml 04/09/20 21:42 04/15/20 09:41 Guaifenesin Dm 100-10/5 Ml Udcup PO 15 ml Q4H PRN Administration Cough Insulin Glargine 15 units/ 0.15 mls @ 0 mls/hr 04/11/20 09:00 04/15/20 09:39 Miscellaneous Medication SC 0.15 mls BID NATALIE Administration Insulin Human Lispro 0 units 04/09/20 22:03 04/15/20 04:41 Humalog 300 Units/3 Ml Vial SC 4 unit .MILD SLIDING SCALE PRN Administration Mild Correctional Scale Levofloxacin 500 mg 04/12/20 20:00 04/14/20 19:59 Levofloxacin 500 Mg Tab PO 500 mg 2000 NATALIE Administration Metoprolol Succinate 50 mg 04/10/20 09:00 04/15/20 08:35 Metoprolol Succinate Xl 50 Mg Tab PO 50 mg QAM NATALIE Administration Pantoprazole Sodium 40 mg 04/10/20 09:00 04/15/20 08:35 Pantoprazole 40 Mg Tab PO 40 mg BID NATALIE Administration - Exam Eye: PERRL, anicteric sclera Heart: RRR, no murmur, no gallops, no rubs, normal peripheral pulses Respiratory: no wheezes, no ronchi, rales (at both bases) Gastrointestinal: soft, non-tender, non-distended, normal bowel sounds, no palpable masses, no hepatomegaly, no splenomegaly Extremities: no cyanosis, no edema (good distal pulses bilaterally) Hosp A/P (1) Acute respiratory failure with hypoxia Code(s): J96.01 - ACUTE RESPIRATORY FAILURE WITH HYPOXIA Status: Acute (2) Pneumonia due to COVID-19 virus Code(s): U07.1 - COVID-19; J12.82 - PNEUMONIA DUE TO CORONAVIRUS DISEASE 2019 Status: Acute (3) CAD (coronary artery disease) Code(s): I25.10 - ATHSCL HEART DISEASE OF [place] CORONARY ARTERY W/O ANG PCTRS Status: Chronic Qualifiers: Coronary Disease-Associated Artery/Lesion type: bypass graft [place] vs. transplanted heart: [place] heart Associated angina: without angina Qualified Code(s): I25.810 - Atherosclerosis of coronary artery bypass graft(s) without angina pectoris (4) DM type 2 (diabetes mellitus, type 2) Status: Chronic Qualifiers: Diabetes mellitus termite exterminator helper insulin use: without penitentiary use (5) HTN (hypertension) Code(s): I10 - ESSENTIAL (PRIMARY) HYPERTENSION Status: Chronic Qualifiers: Hypertension type: essential hypertension Qualified Code(s): I10 - Essential (primary) hypertension - Plan * Acute respiratory failure due to COVID pneumonia- He has improved * Home oxygen has been delivered * Stable for discharge home
--- NOTE | 2020-04-15 17:51 | PDOC.DS.DS ---
Provider - Provider Date of Admission: 04/09/20 20:18 Date of Discharge: 04/15/20 Admitting Provider: Etienne Dumont MD Consultations: Pulmonary Primary Care Physician: SHARATH MONTALVO JR, MD Course - Hospital Course Hospital Course: Mr. Carmen is a pleasant 70-year-old gentleman that has a history of hypertension diabetes and coronary artery disease. He was admitted to the hospital after having shortness of breath related to COVID-19 pneumonia. He was diagnosed with Covid pneumonia on March 28. By the time he presented to our emergency room he was at least 14 days out from his initial symptoms. He was requiring supplemental oxygen and was therefore admitted. Pulmonology was consulted and it was felt that he should be monitored in the hospital for a few days given his age and comorbid conditions including hypertension and diabetes. He did relatively well over the course of the next several days. He never required high flow oxygen or BiPAP. And after being stable on Decadron for a few days supplemental oxygen was arranged to be administered at home. And he was discharged home in stable condition on home oxygen. He is diabetic and with the Decadron his blood sugars were slightly higher than usual. He was instructed on how to do a sliding scale insulin at home and he will be discharged home with a short acting NovoLog insulin pen. Resuscitation Status: 04/09/20 21:41 Resuscitation Status Routine Resuscitation Status: FULL: Full Resuscitation - Labs Lab Results: 04/12/20 05:49 04/14/20 05:47 Abnormal Lab Results - Last 48 hrs 04/14/20 05:47: Sodium 131 L, Carbon Dioxide 19 L, BUN 26 H, C-Reactive Protein 8.74 H 04/14/20 05:47: Ferritin 372.32 H 04/14/20 05:47: D-Dimer 15.24 H 04/15/20 05:41: C-Reactive Protein 5.76 H 04/15/20 05:41: D-Dimer 9.60 H Microbiology - Entire Visit 04/09/20 19:14 Venous blood - Left Arm Blood Culture - Final NO GROWTH IN 5 DAYS 04/09/20 19:12 Venous blood - Left Hand Blood Culture - Final NO GROWTH IN 5 DAYS - Physical Exam Vitals: Vital Signs (12 hours) Temp Pulse Resp BP BP BP BP 04/15/20 15:41 130/82 126/80 101/68 04/15/20 11:37 97.5 F L 80 16 113/74 128/65 132/78 04/15/20 08:51 04/15/20 07:24 98.0 F 72 16 131/79 Pulse Ox 04/15/20 15:41 04/15/20 11:37 90 L 04/15/20 08:51 94 L 04/15/20 07:24 94 L Weight Admit Weight 198 lb 6.656 oz Weight 198 lb 6.656 oz Physical Exam: The patient was seen and examined on the day of discharge. Problem - Problem (1) Acute respiratory failure with hypoxia Code(s): J96.01 - ACUTE RESPIRATORY FAILURE WITH HYPOXIA Status: Acute (2) Pneumonia due to COVID-19 virus Code(s): U07.1 - COVID-19; J12.82 - PNEUMONIA DUE TO CORONAVIRUS DISEASE 2019 Status: Acute (3) CAD (coronary artery disease) Code(s): I25.10 - ATHSCL HEART DISEASE OF [place] CORONARY ARTERY W/O ANG PCTRS Status: Chronic Qualifiers: Coronary Disease-Associated Artery/Lesion type: bypass graft [place] vs. transplanted heart: [place] heart Associated angina: without angina Qualified Code(s): I25.810 - Atherosclerosis of coronary artery bypass graft(s) without angina pectoris (4) DM type 2 (diabetes mellitus, type 2) Status: Chronic Qualifiers: Diabetes mellitus terminal carman insulin use: without long-term use (5) HTN (hypertension) Code(s): I10 - ESSENTIAL (PRIMARY) HYPERTENSION Status: Chronic Qualifiers: Hypertension type: essential hypertension Qualified Code(s): I10 - Essential (primary) hypertension Plan - Discharge Medications Prescriptions: Dexamethasone [Decadron] 6 mg PO DAILY #5 tablet Saccharomyces boulardii [Florastor] 250 mg PO DAILY #30 cap Levofloxacin [Levaquin] 500 mg PO DAILY #5 tab Insulin Aspart [Novolog Flexpen] 100 unit SQ ASDIR #1 insuln.pen Home Medications: Medication Instructions Recorded Confirmed Type Metoprolol Succinate 50 mg PO QAM 08/09/16 04/10/20 History metFORMIN HCl [Metformin ER 500 mg PO BID 08/09/16 04/10/20 History Gastric] Amlodipine [Norvasc] 5 mg PO HS #0 08/21/16 04/10/20 Rx Aspirin [Children's Aspirin] 81 mg PO DAILY 04/10/20 04/10/20 History Atorvastatin Calcium 80 mg PO HS 04/10/20 04/10/20 History Ezetimibe [Zetia] 10 mg PO DAILY 04/10/20 04/10/20 History Semaglutide [Rybelsus] 7 mg PO DAILY 04/10/20 04/10/20 History Dexamethasone [Decadron] 6 mg PO DAILY #5 tablet 04/15/20 Rx Insulin Aspart [Novolog Flexpen] 100 unit SQ ASDIR #1 insuln.pen 04/15/20 Rx Levofloxacin [Levaquin] 500 mg PO DAILY #5 tab 04/15/20 Rx Saccharomyces boulardii [Florastor] 250 mg PO DAILY #30 cap 04/15/20 Rx Allergies: No Known Allergies Allergy (Verified 04/10/20 01:01) - Discharge Instructions Discharge Instructions:: Continue Vitamin C 1000mg a day Zinc 220mg a day Vitamin D 500unit 2 times a week Follow-up with your Primary Care Provider - Dr. Sharath Frias in 2-3 weeks YOUR PRESCRIPTIONS WERE SENT TO: [facility] [address], [place] [address] Activity:: Activity as Tolerated Nourishment:: Heart Healthy Diet - Follow up Plan Referrals: [facility] [Outside] Sharath Montalvo Jr, MD [Primary Care Provider] - Doug Camp MD [Active] - Disposition: HOME Quality - Care Measures CORE MEASURES:: N/A
[2020-04-15 17:58] VITALS: BP 119/78; TEMP 98.5
== END 2020-04-15 17:56 | disposition home or self-care (01) | DRG 177 ==
LOC: ERS 17:24 → T4-A 20:18
PROVIDERS: ADMIT Internal Medicine; ATTEND Internal Medicine
PROC: 8E0ZXY6 Isolation (ICD-10-PCS; principal; 2020-04-09)
DX: U07.1 COVID-19 (principal); J12.82 Pneumonia due to coronavirus disease 2019; J96.01 Acute respiratory failure with hypoxia; I25.810 Atherosclerosis of coronary artery bypass graft(s) without angina pectoris; E11.65 Type 2 diabetes mellitus with hyperglycemia; E78.5 Hyperlipidemia, unspecified; I10 Essential (primary) hypertension; R79.89 Other specified abnormal findings of blood chemistry; Z79.84 Long term (current) use of oral hypoglycemic drugs; Z79.899 Other long term (current) drug therapy; Z95.1 Presence of aortocoronary bypass graft; Z98.890 Other specified postprocedural states; Z87.891 Personal history of nicotine dependence; I25.2 Old myocardial infarction; Z85.72 Personal history of non-Hodgkin lymphomas; Z85.828 Personal history of other malignant neoplasm of skin; Z79.82 Long term (current) use of aspirin; Z79.2 Long term (current) use of antibiotics
CPT/HCPCS: 36415; 36416; 71045; 80048; 80053; 80076; 82728; 83605; 83735; 83880; 84484; 85025; 85379; 86140; 87040; 93005; 96365; 96366; 96375; J1100; J1650; J1815; J1956; J3475

== ENCOUNTER 2020-05-28 10:12 | Outpatient (CLI) | payer MEDICARE, OTHER ==
--- NOTE | 2020-05-28 10:37 | RAD ---
EXAM: Chest PA and lateral: HISTORY: Dyspnea COMPARISON: 04/09/2020 FINDINGS: Bilateral lung infiltrates are again noted. These infiltrates have decreased in density and confluenc y and findings may represent residual scarring from prior pneumonia. Heart and mediastinum appear unremarkable. Osseous structures are unremarkable. IMPRESSION: Persistent interstitial and hazy alveolar opacities in the lung bases.
== END 2020-05-28 10:13 | disposition home or self-care (01) ==
LOC: BICRAD 10:12
PROVIDERS: ATTEND Internal Medicine Critical Care Medicine
DX: R06.00 Dyspnea, unspecified (principal); R91.8 Other nonspecific abnormal finding of lung field
CPT/HCPCS: 71046

== ENCOUNTER 2020-07-29 12:17 | Outpatient (CLI) | payer MEDICARE, OTHER | END 2020-07-29 12:18 | disposition home or self-care (01) | LOC: BICRAD 12:17 | PROVIDERS: ATTEND Family Medicine | DX: U07.1 COVID-19 (principal) | CPT/HCPCS: 71046 ==

== ENCOUNTER 2022-02-13 09:49 | Day surgery (SDC) | payer MEDICARE, OTHER ==
[2022-02-12 14:35] VITALS: BMI 30.2
[2022-02-13] MEDS ORDERED: Nitroglycerin 100MG/250ML BOT 0 ML ONE (10:28)
[2022-02-13] MEDS ORDERED: Lidocaine 1% (PF) 30 ML VIAL ONE (10:28)
[2022-02-13] MEDS ORDERED: Adenosine 6 MG/2 ML VIAL ONE (10:28)
[2022-02-13] MEDS ORDERED: Heparin 10,000 UNITS/ 10 ML VIAL ONE (10:28)
[2022-02-13] MEDS ORDERED: Iopamidol 370 76% 100 ML VIAL ONE (11:10)
[2022-02-13 11:19] LABS: #Eosinphils 0.2 thou/uL (0.0-0.7); #Lymphocytes 2.1 thou/uL (1.20-3.40); #Monocytes 0.4 thou/uL (0.11-0.59); #Neutrophils 4.9 thou/uL (1.40-6.50); %Basophils 0.3 % (0.0-1.0); %Monocytes 5.7 % (0.0-10.0); Hemoglobin 16.5 g/dL (14.0-18.0); Mean Corpuscular HGB CONC 34.6 g/dL (32.0-36.0); Mean Corpuscular Hemoglobin 32.7 pg (27.0-31.0); Mean Corpuscular Volume 94.4 fl (78.0-98.0); Mean Platelet Volume 7.6 fL (7.4-10.4); Platelet Count 199 10x3/uL (130-400); RBC Distribution Width 11.7 % (11.5-14.5); Red Blood Cell (RBC) Count 5.05 mill/uL (4.70-6.10); White Blood Cell (WBC) Count 7.7 10x3/uL (4.8-10.8)
[2022-02-13] MEDS ORDERED: Fentanyl 100 MCG/2 ML VIAL ONE (11:33)
[2022-02-13] MEDS ORDERED: Midazolam HCl 2 mg/2 ml Vial ONE (11:34)
[2022-02-13 11:38] LABS: ALT (SGPT) 31 U/L (8-55); AST (SGOT) 20 U/L (5-34); Albumin 4.6 g/dL (3.4-4.8); Alkaline Phosphatase 53 U/L (40-110); Anion Gap 14 mmol/L (10-20); BUN (Urea Nitrogen) 14 mg/dL (8.4-25.7); Bilirubin, Direct 0.4 mg/dL (0.1-0.3); Bilirubin, Total 1.3 mg/dL (0.2-1.2); Calc. Creatinine Clearance 101 mL/min (70-130); Carbon Dioxide 23 mmol/L (23-31); Cardiac Risk 3.3 (Less than 4.5); Chloride 105 mmol/L (98-107); Cholesterol 113 mg/dl (< 200 Desired); Estimated GFR 91; Globulin 2.8 g/dL (2.4-3.5); Glucose 126 mg/dL (83-110); HDL Cholesterol 34 mg/dL (>60 Neg Risk); LDL Cholesterol, Calculated 57 mg/dL; Potassium 4.3 mmol/L (3.5-5.1); Protein, Total 7.4 g/dL (5.8-8.1); Sodium 138 mmol/L (136-145); Triglycerides 110 mg/dL (Less than 150)
== END 2022-02-13 17:25 | disposition home or self-care (01) ==
LOC: SDC 09:49
PROVIDERS: ATTEND Internal Medicine Cardiovascular Disease
PROC: 4A023N7 Measurement of Cardiac Sampling and Pressure, Left Heart, Percutaneous Approach (ICD-10-PCS; principal; 2022-02-13)
PROC: B2111ZZ Fluoroscopy of Multiple Coronary Arteries using Low Osmolar Contrast (ICD-10-PCS; 2022-02-13)
PROC: B2181ZZ Fluoroscopy of Left Internal Mammary Bypass Graft using Low Osmolar Contrast (ICD-10-PCS; 2022-02-13)
PROC: B2131ZZ Fluoroscopy of Multiple Coronary Artery Bypass Grafts using Low Osmolar Contrast (ICD-10-PCS; 2022-02-13)
DX: R94.39 Abnormal result of other cardiovascular function study (principal); I25.10 Atherosclerotic heart disease of native coronary artery without angina pectoris; I25.82 Chronic total occlusion of coronary artery; I45.10 Unspecified right bundle-branch block; E78.2 Mixed hyperlipidemia; E11.9 Type 2 diabetes mellitus without complications; I10 Essential (primary) hypertension; I25.2 Old myocardial infarction; E66.9 Obesity, unspecified; Z68.30 Body mass index [BMI] 30.0-30.9, adult; Z87.891 Personal history of nicotine dependence; Z79.82 Long term (current) use of aspirin; Z79.84 Long term (current) use of oral hypoglycemic drugs; Z79.85 Long-term (current) use of injectable non-insulin antidiabetic drugs; Z79.899 Other long term (current) drug therapy; Z95.1 Presence of aortocoronary bypass graft; Z95.5 Presence of coronary angioplasty implant and graft
CPT/HCPCS: 36415; 80053; 80061; 80076; 85025; 93005; 93010; 93461; 99152; 99153; C1769; C1894; J0153; J1644; J2001; J2250; J3010; Q9967